=== PATIENT | female | born 1970 | race Caucasian/White ===

== ENCOUNTER → 2019-04-07 | Outpatient (CLI) | payer OTHER ==
[~2019-04-07] MED LIST: CALCIT950 PO; Calcitriol0.25 MCG; ERGO50000 PO; FLUTICASONE PROPIONA; HYDACE7.5; HYDCHL50; INDERAL XL80 MG; LANS30EC; LEVSOD137 PO; LEVSOD88; LORA.5 PO; MONT10T; MONT10T PO; NATPARA50 MCG SQ; POTA10T; PROM25; PROP80ER; SERT50 PO; ZOLP10
[2019-04-07 14:28] LABS: Source, Urine Clean Catch
[2019-04-07 15:06] LABS: Bilirubin, Urine Neg (Neg); Blood, Urine Neg (Neg); Glucose Qualitative, Urine Neg (Neg); Ketones, Urine Neg (Neg); Leukocyte Esterase, Urine Neg (Neg); Nitrite, Urine Neg (Neg); Protein, Urine Neg (Neg); Specific Gravity, Urine 1.005 (1.003-1.022); Urobilinogen, Urine NORM (Normal)
[2019-04-07 15:09] LABS: Appearance, Urine Clear (Clear); Color, Urine Yellow (P-Yellow)
== END ==
LOC: LAB SHORT 14:26 → OLS 14:26 → LAB FUT 04-06 13:30
PROVIDERS: Internal Medicine
DX: R10.9 Unspecified abdominal pain (principal)
CPT/HCPCS: 81003

== ENCOUNTER → 2019-07-31 | Outpatient (CLI) | payer OTHER ==
[2019-07-31 15:00] LABS: BASOPHILS ABSOLUTE AUTO 0.05 K/mm3 (0.00-0.23); BASOPHILS PERCENT AUTO 1 % (0-2); EOSINOPHILS ABSOLUTE AUTO 0.34 K/mm3 (0.00-0.68); EOSINOPHILS PERCENT AUTO 5 % (0-6); Hematocrit 37.9 % (33.0-51.0); IMMATURE GRAN ABSOLUTE AUTO 0.02 K/mm3 (0.00-0.10); IMMATURE GRAN PERCENT AUTO 0 % (0-1); LYMPHOCYTES ABSOLUTE AUTO 1.19 K/mm3 (0.84-5.20); LYMPHOCYTES PERCENT AUTO 18 % (21-46); MONOCYTES ABSOLUTE AUTO 0.76 K/mm3 (0.16-1.47); MONOCYTES PERCENT AUTO 12 % (4-13); Mean Corpuscular HGB 32.4 pg (26.0-34.0); Mean Corpuscular HGB Conc 36.9 g/dL (31.5-36.5); Mean Corpuscular Volume 88 fL (80-100); Mean Platelet Volume 11.2 fL (9.1-12.4); NEUTROPHILS ABSOLUTE AUTO 4.17 K/mm3 (1.96-9.15); NEUTROPHILS PERCENT AUTO 64 % (41-73); Platelet Count 285 K/mm3 (150-400); RDW Coefficient Variation 11.4 % (11.7-14.2); RDW Standard Deviation 36.7 fL (35.1-46.3); Red Blood Cell Count 4.32 M/mm3 (3.80-5.20); White Blood Cell Count 6.53 K/mm3 (4.00-11.30)
[2019-07-31 15:18] LABS: Albumin, Blood 4.6 g/dL (3.4-5.0); Albumin/Globulin Ratio 1.2 (0.8-1.8); Bilirubin, Total 0.5 mg/dL (0.1-1.0); Bun/Creatinine Ratio 13.8 (12.0-20.0); Creatinine, Blood 1.88 mg/dL (0.40-1.00); Magnesium, Blood 1.8 mg/dL (1.6-2.4); Potassium, Blood 2.9 mmol/L (3.5-5.5); Thyroid Stimulating Hormone 0.558 uIU/mL (0.360-4.800); Total Protein, Blood 8.6 g/dL (6.4-8.2)
[2019-07-31 15:23] LABS: Calcium, Blood 16.6 mg/dL (8.5-10.1)
[2019-07-31 16:23] LABS: Creatinine, Blood 1.79 mg/dL (0.40-1.00)
[2019-07-31 16:27] LABS: Calcium, Blood 14.8 mg/dL (8.5-10.1)
== END | disposition home or self-care (01) ==
LOC: LAB SHORT 14:56 → LAB EV 14:56
PROVIDERS: Family Medicine
DX: E03.9 Hypothyroidism, unspecified (principal); R10.9 Unspecified abdominal pain; E83.52 Hypercalcemia; R11.2 Nausea with vomiting, unspecified; E83.39 Other disorders of phosphorus metabolism
CPT/HCPCS: 80048; 80053; 82330; 83690; 83735; 84100; 84443; 85025

== ENCOUNTER → 2019-08-01 | Outpatient (CLI) | payer OTHER ==
[2019-08-01 11:17] LABS: Creatinine, Blood 1.79 mg/dL (0.40-1.00)
[2019-08-01 11:18] LABS: Calcium, Blood 13.3 mg/dL (8.5-10.1)
== END ==
LOC: LAB SHORT 11:07 → LAB EV 11:07
PROVIDERS: Family Medicine
DX: E78.00 Pure hypercholesterolemia, unspecified (principal)
CPT/HCPCS: 80048

== ENCOUNTER → 2021-09-01 | Outpatient (CLI) | payer OTHER | END | disposition home or self-care (01) | LOC: LAB SHORT 07:26 | DX: D48.5 Neoplasm of uncertain behavior of skin (principal) | CPT/HCPCS: 88305 ==

== ENCOUNTER → 2022-08-29 | Outpatient (CLI) | payer OTHER | END | disposition home or self-care (01) | LOC: LAB SHORT 14:39 → LAB 14:39 | DX: H60.92 Unspecified otitis externa, left ear (principal) | CPT/HCPCS: 87070; 87205 ==

== ENCOUNTER → 2023-06-21 | Outpatient (CLI) | payer OTHER | LOC: LAB SHORT 09:19 → LAB 09:19 | DX: L82.0 Inflamed seborrheic keratosis (principal) | CPT/HCPCS: 88305 ==

== ENCOUNTER → 2024-03-01 | Outpatient (CLI) | payer OTHER ==
[~2024-03-01] MED LIST changes: +Bentyl10 MG; +DOTTI1 EA19; +Flonase 0.05% N16 GM; +PRED20; +SPIR25; +[UNRECOGNIZED DRUG - OTHER]
[2024-03-01 17:13] LABS: Source, Urine Clean Catch
[2024-03-01 18:49] LABS: Appearance, Urine Hazy (Clear); Bilirubin, Urine Neg (Neg); Blood, Urine Neg (Neg); Color, Urine Yellow (P-Yellow); Glucose Qualitative, Urine Neg (Neg); Ketones, Urine Neg (Neg); Leukocyte Esterase, Urine 1+ (Neg); Nitrite, Urine Neg (Neg); Protein, Urine 1+ (Neg); Specific Gravity, Urine 1.025 (1.003-1.022); Urobilinogen, Urine NORM (Normal)
[2024-03-01 18:59] LABS: Bacteria Many /hpf; Calcium Oxalate Crystals Rare /hpf; Red Blood Cells, Urine 0-2 /hpf (0-2); Squamous Epithelial Cells Few /hpf (Few); Transitional Epithelial Cells Rare /hpf (0-Rare)
[2024-03-01 19:58] LABS: Bacterial Vaginosis PCR Negative (NEGATIVE); Candida Group, PCR NOT DETECTED (NOT DETECT)
[2024-03-01 20:07] LABS: Candida glabrata-krusei, PCR DETECTED (NOT DETECT)
== END | disposition home or self-care (01) ==
LOC: LAB 16:24 → LAB SHORT 16:24
PROVIDERS: Obstetrics & Gynecology
DX: N39.46 Mixed incontinence (principal); N76.0 Acute vaginitis
CPT/HCPCS: 81001; 87077; 87086; 87186; 87481; 87661; 87801

== ENCOUNTER → 2025-04-12 | Outpatient (CLI) | payer OTHER | LOC: LAB 10:55 → LAB SHORT 10:55 | DX: L81.4 Other melanin hyperpigmentation (principal); L81.8 Other specified disorders of pigmentation | CPT/HCPCS: 88305 ==